=== PATIENT | female | born 1950 | race Caucasian/White ===

== ENCOUNTER 2017-05-26 18:05 | Emergency (ER) | payer MEDICARE ==
[~2017-05-26] VITALS: Ht 154.9 cm; Wt 74.4 kg
[~2017-05-26 18:05] MED LIST: ASPIR 8181 MG PO; BYETTA5 MCG/0.02 SC; CINNAMON500 MG PO; CYCLOBENZAPRINE10 MG PO; D3 DOTS2000 UNIT; HYDROCHLOROTHIA25 MG PO; LANTUS100 UNITS/ SC; LOSARTAN POTASS25 MG PO; LOVASTATIN40 MG PO; METFORMIN HCL1000 MG PO; NAPROXEN250 MG PO
--- NOTE | 2017-05-26 19:43 | Diagnostic Imaging Report ---
EXAMINATION: CHEST 2 VIEWS INDICATION: Cough COMPARISON: None FINDINGS: PA and lateral views TUBES and LINES: None. LUNGS: Lungs are well inflated. Lungs are clear. There is no evidence of pneumonia or pulmonary edema. PLEURA: No pleural effusion or pneumothorax. HEART AND MEDIASTINUM: The cardiomediastinal silhouette is unremarkable. Mitral valve calcifications BONES AND SOFT TISSUES: No acute osseous lesion. Soft tissues are unremarkable. UPPER ABDOMEN: No free air under the diaphragm. IMPRESSION: No acute thoracic abnormality. Mitral valve calcifications Signed by: Dr. Alex Rizo M.D. on 05/26/2017 7:40 PM
== END 2017-05-26 23:11 | disposition home or self-care (01) ==
LOC: ER 18:05
DX: R05 Cough (principal); J11.1 Influenza due to unidentified influenza virus with other respiratory manifestations
CPT/HCPCS: 71020; 87400; 99283